=== PATIENT | female | born 1970 | race Caucasian/White ===

== ENCOUNTER 2017-10-16 14:30 | Emergency (ER) | payer BC ==
[~2017-10-16] VITALS: Ht 160 cm; Wt 82.0 kg
[2017-10-16 14:32] VITALS: BP 190/86; PULSE 81; RESP 18; TEMP 98.9; O2SAT 98
[2017-10-16 15:14] LABS: BILIRUBIN, URINE NEG (NEG); BLOOD, URINE SMALL (NEG); GLUCOSE,URINE NEG (NEG); KETONE, URINE NEG (NEG); NITRITE,URINE NEG (NEG); URINE LEUKOCYTE ESTERASE NEG (NEG)
[2017-10-16 15:23] LABS: AMORPHOUS SEDIMENT, URINE SMALL; URINE COLOR YELLOW (YELLW/STRAW)
[2017-10-16] MEDS ORDERED: SODIUM CHLORIDE 0.9% FLUSH 10 ML FLUSH IV FLUSH PRN (16:15)
[2017-10-16 16:36] LABS: AUTOMATED NEUTROPHIL # 7.4 TH/MM3 (1.8-7.7); BASOPHIL % 0.5 % (0.0-2.0); EOSINOPHIL # 0.1 TH/MM3 (0-0.4); EOSINOPHIL % 0.9 % (0.0-4.0); HEMATOCRIT 39.3 % (35.0-46.0); HEMOGLOBIN 13.1 GM/DL (11.6-15.3); LYMPH % 15.2 % (9.0-44.0); LYMPHOCYTE # 1.4 TH/MM3 (1.0-4.8); MEAN CELL VOLUME 77.8 FL (80.0-100.0); MEAN CORPUSCULAR HGB CONC 33.5 % (32.0-36.0); MEAN PLATELET VOLUME 8.3 FL (7.0-11.0); MONO % 6.6 % (0.0-8.0); MONOCYTE # 0.6 TH/MM3 (0-0.9); NEUT % 76.8 % (16.0-70.0); PLATELET COUNT 229 TH/MM3 (150-450); RED BLOOD COUNT 5.05 MIL/MM3 (4.00-5.30); WHITE BLOOD COUNT 9.5 TH/MM3 (4.0-11.0)
--- NOTE | 2017-10-16 16:37 | RADRPT ---
EXAM DATE/TIME: 10/16/2017 15:11 [facility] COMPARISON: No previous studies available for comparison. INDICATIONS : Right upper quadrant pain for four days after cholecystectomy. MEDICAL HISTORY : Smoker. SURGICAL HISTORY : Cholecystectomy. ENCOUNTER: Initial ACUITY: 4 - 6 days PAIN SCORE: 6/10 LOCATION: Right upper quadrant FINDINGS: No bowel obstruction, ileus or perforation is noted. The patient is status post cholecystectomy. CONCLUSION: No bowel obstruction, ileus or perforation. Nain Vargas MD on October 16, 2017 at 16:34 Board Certified Radiologist. This report was verified electronically.
--- NOTE | 2017-10-16 16:38 | RADRPT ---
EXAM DATE/TIME: 10/16/2017 15:11 [facility] COMPARISON: No previous studies available for comparison. INDICATIONS : Shortness of breath and fever for four days. MEDICAL HISTORY : Current smoker. SURGICAL HISTORY : Cholecystectomy. ENCOUNTER: Initial ACUITY: 4 - 6 days PAIN SCORE: 0/10 LOCATION: Bilateral chest FINDINGS: There is minimal streaky parenchymal opacity in the lung bases. No evidence of lobar consolidation or significant effusion. Cardiac contours are satisfactory. Thoracic skeleton is intact. CONCLUSION: Minimal streaky basilar parenchymal opacity. Sebastián Guardado MD on October 16, 2017 at 16:35 Board Certified Radiologist. This report was verified electronically.
[2017-10-16 16:40] VITALS: RESP 17; O2SAT 100
[2017-10-16 16:52] LABS: CHLORIDE 102 MEQ/L (98-107); SODIUM (NA) 135 MEQ/L (136-145)
[2017-10-16 16:55] LABS: CALCIUM 9.1 MG/DL (8.5-10.1)
[2017-10-16 16:56] LABS: ALBUMIN 3.7 GM/DL (3.4-5.0); BICARBONATE 28.3 MEQ/L (21.0-32.0); BLOOD UREA NITROGEN 6 MG/DL (7-18); GLUCOSE,RANDOM 104 MG/DL (74-106)
[2017-10-16 16:59] LABS: ALT (GPT) 72 U/L (10-53); AST (GOT) 22 U/L (15-37); CREATININE 0.65 MG/DL (0.50-1.00); GLOMERULAR FILTRATION RATE 97 ML/MIN (>89)
[2017-10-16 17:01] LABS: TOTAL PROTEIN 7.4 GM/DL (6.4-8.2)
[2017-10-16 17:02] LABS: ALKALINE PHOSPHATASE 107 U/L (45-117)
[2017-10-16] MEDS ORDERED: MIRA3350 PO (17:19)
[2017-10-16] MEDS ORDERED: FLEE10EN RECTAL (17:19)
--- NOTE | 2017-10-16 17:20 | PD ---
HPI Chief Complaint: Abdominal Pain Time Seen by Provider: 14:40 Travel History International Travel<30 days: No Contact w/Intl Traveler<30days: No Traveled to known affect area: No History of Present Illness HPI Patient is a 47-year-old female patient of Dr. Echevarria presents emergency department with right improper abdominal pain and fever to a T-max of 100.0 since last night. Patient is postoperative day 3 from a laparoscopic cholecystectomy. She states it hurts her whenever she is taking deep breaths, no nausea no vomiting, states she has not had a bowel movement since being discharged from the hospital. She has not been taking much of her prescribed opiate pain medication. Denies any cough congestion chest pain. States symptoms are moderate, context as above, associated sinus symptoms as above, gradually worsening PFSH Past Medical History High Cholesterol: Yes Tetanus Vaccination: > 5 Years Influenza Vaccination: No ?: Not LMP: 09/17/2017 Past Surgical History Cholecystectomy: Yes Tonsillectomy: Yes Other Surgery: Yes (fibroids removed) Social History Alcohol Use: Yes (socially) Tobacco Use: Yes (5 cigs daily) Substance Use: No Allergies-Medications (Allergen,Severity, Reaction): Coded Allergies: No Known Allergies (Verified Adverse Reaction, Unknown, 10/16/17) Reported Meds & Prescriptions Reported Meds & Active Scripts Active Fleet Bisacodyl Enema (Bisacodyl) 10 Mg/37 Ml Enem 37 Ml RECTAL DAILY PRN Miralax Powder (Polyethylene Glycol 3350 Powder) 17 Gm Powd 17 Gm PO BID 7 Days Mix and dissolve one measuring cap-ful (17 grams) in water or juice. Review of Systems Except as stated in HPI: all other systems reviewed are Neg Physical Exam Narrative GENERAL: Well-developed well-nourished in no obvious distress SKIN: Focused skin assessment warm/dry. HEAD: Atraumatic. Normocephalic. EYES: Pupils equal and round. No scleral icterus. No injection or drainage. ENT: No nasal bleeding or discharge. Mucous membranes pink and moist. NECK: Trachea midline. No JVD. CARDIOVASCULAR: Regular rate and rhythm. No murmur appreciated. RESPIRATORY: No accessory muscle use. Clear to auscultation. Breath sounds equal bilaterally. GASTROINTESTINAL: Abdomen soft, appropriately tender to palpation given her recent surgery, mostly tender in the right upper quadrant but no rebound or percussive tenderness. Abdomen is fairly benign given that she just had surgery. nondistended. Hepatic and splenic margins not palpable. MUSCULOSKELETAL: No obvious deformities. No clubbing. No cyanosis. No edema. There is no swelling of the calfs, Homans sign negative. NEUROLOGICAL: Awake and alert. No obvious cranial nerve deficits. Motor grossly within normal limits. Normal speech. PSYCHIATRIC: Appropriate mood and affect; insight and judgment normal. Data Data Last Documented VS Vital Signs Date Time Temp Pulse Resp B/P (MAP) Pulse Ox O2 Delivery O2 Flow Rate FiO2 10/16/17 17:23 73 18 131/75 (93) 97 10/16/17 16:40 Room Air 10/16/17 14:32 98.9 Orders Orders Chest, Pa & Lat (10/16/17 ) Abdomen, Kub Only (10/16/17 ) Urinalysis - C+S If Indicated (10/16/17 15:04) Complete Blood Count With Diff (10/16/17 16:14) Comprehensive Metabolic Panel (10/16/17 16:14) Lipase (10/16/17 16:14) Iv Access Insert/Monitor (10/16/17 16:14) Ecg Monitoring (10/16/17 16:14) Oximetry (10/16/17 16:14) Sodium Chloride 0.9% Flush (Ns Flush) (10/16/17 16:15) Ed Discharge Order (10/16/17 17:18) Labs Laboratory Tests Test 10/16/17 15:05 10/16/17 16:25 Urine Collection Type CLEAN CATCH Urine Color YELLOW Urine Turbidity CLEAR Urine pH 7.0 Urine Specific [place] 1.005 Urine Protein NEG mg/dL Urine Glucose (UA) NEG mg/dL Urine Ketones NEG mg/dL Urine Occult Blood SMALL Urine Nitrite NEG Urine Bilirubin NEG Urine Leukocyte Esterase NEG Urine Squamous Epithelial Cells 6-8 /hpf Urine Amorphous Sediment SMALL Microscopic Urinalysis Comment CULT NOT INDICATED White Blood Count 9.5 TH/MM3 Red Blood Count 5.05 MIL/MM3 Hemoglobin 13.1 GM/DL Hematocrit 39.3 % Mean Corpuscular Volume 77.8 FL Mean Corpuscular Hemoglobin 26.0 PG Mean Corpuscular Hemoglobin Concent 33.5 % Red Cell Distribution Width 13.0 % Platelet Count 229 TH/MM3 Mean Platelet Volume 8.3 FL Neutrophils (%) (Auto) 76.8 % Lymphocytes (%) (Auto) 15.2 % Monocytes (%) (Auto) 6.6 % Eosinophils (%) (Auto) 0.9 % Basophils (%) (Auto) 0.5 % Neutrophils # (Auto) 7.4 TH/MM3 Lymphocytes # (Auto) 1.4 TH/MM3 Monocytes # (Auto) 0.6 TH/MM3 Eosinophils # (Auto) 0.1 TH/MM3 Basophils # (Auto) 0.0 TH/MM3 CBC Comment DIFF FINAL Differential Comment Blood Urea Nitrogen 6 MG/DL Creatinine 0.65 MG/DL Random Glucose 104 MG/DL Total Protein 7.4 GM/DL Albumin 3.7 GM/DL Calcium Level 9.1 MG/DL Alkaline Phosphatase 107 U/L Aspartate Amino Transf (AST/SGOT) 22 U/L Alanine Aminotransferase (ALT/SGPT) 72 U/L Total Bilirubin 1.0 MG/DL Sodium Level 135 MEQ/L Potassium Level 3.8 MEQ/L Chloride Level 102 MEQ/L Carbon Dioxide Level 28.3 MEQ/L Anion Gap 5 MEQ/L Estimat Glomerular Filtration Rate 97 ML/MIN Lipase 56 U/L MDM Medical Decision Making Medical Screen Exam Complete: Yes Emergency Medical Condition: Yes Differential Diagnosis Postoperative fever, atelectasis, pneumonia, UTI, PE seems highly unlikely that she has been quite ambulatory at home according to her . Narrative Course Patient room to the emergency department, UA negative, chest x-ray negative. KUB does show significant amount of stool and she has been taking Dulcolax Gone ahead and add MiraLAX to her regimen. Patient was discussed with Dr. Herrera who does request basic labs and her basic labs are reassuring. I discussed with the patient that she does appear well and Dr. Herrera recommends that she continues to take her pain medication. At this time I do not think that a CT PE protocol is of necessity, I discussed that the patient has any further shortness of breath she should return emergency department but her shortness of breath symptoms right now she admits her because it hurts her when she takes a deep breath secondary to right upper quadrant pain. Diagnosis Primary Impression: Post-operative pain Additional Impression: Constipation Scripts Bisacodyl Enema (Fleet Bisacodyl Enema) 10 Mg/37 Ml Enem 37 ML RECTAL DAILY Y for CONSTIPATION, #1 BOTTLE 0 Refills Prov: Nain Peraza MD 10/16/17 Polyethylene Glycol 3350 Powder (Miralax Powder) 17 Gm Powd 17 GM PO BID for Constipation for 7 Days, #1 CAN 0 Refills Mix and dissolve one measuring cap-ful (17 grams) in water or juice. Prov: Nain Peraza MD 10/16/17 Disposition: 01 DISCHARGE HOME Condition: Stable Nain Peraza MD Oct 16, 2017 17:20
[2017-10-16 17:23] VITALS: BP 131/75
== END 2017-10-16 17:31 | disposition home or self-care (01) ==
LOC: PHED 14:30
DX: G89.18 Other acute postprocedural pain (principal); K59.00 Constipation, unspecified; E78.00 Pure hypercholesterolemia, unspecified; F17.210 Nicotine dependence, cigarettes, uncomplicated
CPT/HCPCS: 71046; 74018; 80053; 81001; 83690; 85025; 99284

== ENCOUNTER 2017-10-30 06:55 | Observation (INO) | payer BC ==
[~2017-10-30] VITALS: Ht 160 cm; Wt 75.0 kg
[~2017-10-30 06:55] MED LIST: FLEE10EN RECTAL; MIRA3350 PO
[2017-10-30 06:56] VITALS: BP 127/80; PULSE 102; RESP 14; TEMP 98; O2SAT 99
[2017-10-30] MEDS ORDERED: MORPHINE SULFATE 4 MG/ML INJ IV PUSH ONE (07:30)
[2017-10-30] MEDS ORDERED: DIATRIZOATE MEGLUM/DIATRIZOATE SOD 9 ML CUP PO ONE (07:30)
[2017-10-30] MEDS ORDERED: HYDR-3580 PO (07:43)
[2017-10-30] MEDS ORDERED: CYCL10TA PO (07:43)
[2017-10-30 07:57] LABS: BASOPHIL # 0.1 TH/MM3 (0-0.2); BASOPHIL % 0.6 % (0.0-2.0); EOSINOPHIL # 0.2 TH/MM3 (0-0.4); EOSINOPHIL % 1.4 % (0.0-4.0); HEMOGLOBIN 13.7 GM/DL (11.6-15.3); LYMPHOCYTE # 1.1 TH/MM3 (1.0-4.8); MEAN CELL VOLUME 78.4 FL (80.0-100.0); MEAN CORPUSCULAR HEMOGLOBIN 26.2 PG (27.0-34.0); MEAN CORPUSCULAR HGB CONC 33.5 % (32.0-36.0); MEAN PLATELET VOLUME 7.9 FL (7.0-11.0); MONO % 8.8 % (0.0-8.0); MONOCYTE # 1.1 TH/MM3 (0-0.9); NEUT % 80.2 % (16.0-70.0); PLATELET COUNT 424 TH/MM3 (150-450); RED BLOOD COUNT 5.23 MIL/MM3 (4.00-5.30); WHITE BLOOD COUNT 12.5 TH/MM3 (4.0-11.0)
[2017-10-30 08:06] LABS: ALT (GPT) 23 U/L (10-53); AST (GOT) 10 U/L (15-37); BICARBONATE 28.9 MEQ/L (21.0-32.0); BLOOD UREA NITROGEN 9 MG/DL (7-18); CALCIUM 9.5 MG/DL (8.5-10.1); CHLORIDE 102 MEQ/L (98-107); CREATININE 0.72 MG/DL (0.50-1.00); GLOMERULAR FILTRATION RATE 86 ML/MIN (>89); GLUCOSE,RANDOM 110 MG/DL (74-106); SODIUM (NA) 136 MEQ/L (136-145)
[2017-10-30 08:08] LABS: ALKALINE PHOSPHATASE 223 U/L (45-117); TOTAL BILIRUBIN ADULT 0.9 MG/DL (0.2-1.0); TOTAL PROTEIN 7.8 GM/DL (6.4-8.2)
--- NOTE | 2017-10-30 08:11 | RADRPT ---
EXAM DATE/TIME: 10/30/2017 07:32 [facility] COMPARISON: ABDOMEN KUB ONLY, October 16, 2017, 15:11. INDICATIONS : Lower chest pain post gallbladder removal. MEDICAL HISTORY : None. SURGICAL HISTORY : Cholecystectomy. ENCOUNTER: Initial ACUITY: 2 weeks PAIN SCORE: 10/10 LOCATION: Bilateral lower chest FINDINGS: A single view of the chest demonstrates the lungs to be symmetrically aerated without evidence of mas s, infiltrate or effusion. The cardiomediastinal contours are unremarkable. Osseous structures are intact. CONCLUSION: 1. No acute cardiopulmonary findings. Hermelindo Garcia MD on October 30, 2017 at 8:10 Board Certified Radiologist. This report was verified electronically.
[2017-10-30] MEDS ORDERED: IOHEXOL 350 MG/ML 10 ML VIAL (for RAD DIAG) IVCONTRAST ONE (09:56)
[2017-10-30] MEDS ORDERED: MORPHINE SULFATE 2 MG/ML INJ IV PUSH ONE (10:15)
--- NOTE | 2017-10-30 10:22 | RADRPT ---
EXAM DATE/TIME: 10/30/2017 09:40 [facility] COMPARISON: No previous studies available for comparison. INDICATIONS : Upper epigastric pain following cholecystectomy 10/23/17. IV CONTRAST: 98 cc Omnipaque 350 (iohexol) IV ; Cumulative dose for multiple exams. RADIATION DOSE: 18.17 CTDIvol (mGy) MEDICAL HISTORY : None SURGICAL HISTORY : Cholecystectomy. ENCOUNTER: Initial ACUITY: 1 day PAIN SCALE: 8/10 LOCATION: Bilateral upper quadrant TECHNIQUE: Volumetric scanning of the chest was performed using a pulmonary embolism protocol MIP images were re constructed. Using automated exposure control and adjustment of the mA and/or kV according to patien t size, radiation dose was kept as low as reasonably achievable to obtain optimal diagnostic quality images. DICOM format image data is available electronically for review and comparison. Follow-up recommendations for detected pulmonary nodules are based at a minimum on nodule size and pa tient risk factors according to Fleischner Society Guidelines. FINDINGS: PULMONARY ARTERIES: No filling defects are seen in the pulmonary arteries through the segmental level. LUNGS: There is no consolidation or pneumothorax . No concerning pulmonary nodule is visualized. PLEURAE: There is no pleural thickening or pleural effusion. MEDIASTINUM: There is good visualization of the great vessels of the middle mediastinum. No evidence of mediastin al or hilar adenopathy/mass. CONCLUSION: Negative for pulmonary embolism. Luis Feliz MD on October 30, 2017 at 10:11 Board Certified Radiologist. This report was verified electronically.
--- NOTE | 2017-10-30 10:24 | PD ---
HPI Chief Complaint: Abdominal Pain Time Seen by Provider: 08:12 Travel History International Travel<30 days: No Contact w/Intl Traveler<30days: No Traveled to known affect area: No History of Present Illness HPI 47-year-old female came to the emergency room with history of bilateral subcostal pain and generalized abdominal pain. She looked uncomfortable. She had a cholecystectomy 2 weeks ago and says she has been in this discomfort since then. She saw her surgeon one week ago which was Dr. Herrera. He had prescribed muscle relaxant which patient says did not help at all. Her pain radiates to her left shoulder occasionally. She looks in distress and started to cry when she said that she has been unable to sleep with this pain since its extremely uncomfortable. Vital signs were relatively stable. Pain comes and goes on its own. No aggravating or relieving factors identified. PFSH Past Medical History Narrative Medical List of her past medical, surgical, social and family history is reviewed from the nursing note. High Cholesterol: Yes ?: Not LMP: october 2017 Past Surgical History Cholecystectomy: Yes Tonsillectomy: Yes Other Surgery: Yes (fibroids removed) Social History Alcohol Use: Yes (socially) Tobacco Use: Yes (5 cigs daily) Substance Use: No Allergies-Medications (Allergen,Severity, Reaction): Coded Allergies: No Known Allergies (Verified Adverse Reaction, Unknown, 10/16/17) Comments No known drug allergies. Reported Meds & Prescriptions Reported Meds & Active Scripts Active Reported Flexeril (Cyclobenzaprine HCl) 10 Mg Tab 10 Mg PO TID Hydrocodone-Acetaminophen 7.5 Mg-325 Mg Tab 1 Tab PO Q4H PRN Narrative Medication List of her home medications reviewed from the nursing note. Review of Systems Except as stated in HPI: all other systems reviewed are Neg Gastrointestinal: Positive: Abdominal Pain Physical Exam Narrative GENERAL: Awake, alert, moderate distress, anxious, tearful SKIN: Focused skin assessment warm/dry. HEAD: Atraumatic. Normocephalic. EYES: Pupils equal and round. No scleral icterus. No injection or drainage. ENT: No nasal bleeding or discharge. Mucous membranes pink and moist. NECK: Trachea midline. No JVD. CARDIOVASCULAR: Regular rate and rhythm. No murmur appreciated. RESPIRATORY: No accessory muscle use. Clear to auscultation. Breath sounds equal bilaterally. GASTROINTESTINAL: Abdomen soft, distended, bowel sounds present, tenderness on moderate palpation. Hepatic and splenic margins not palpable. MUSCULOSKELETAL: No obvious deformities. No clubbing. No cyanosis. No edema. NEUROLOGICAL: Awake and alert. No obvious cranial nerve deficits. Motor grossly within normal limits. Normal speech. PSYCHIATRIC: Appropriate mood and affect; insight and judgment normal. Data Data Last Documented VS Orders Orders Complete Blood Count With Diff (10/30/17 07:23) Comprehensive Metabolic Panel (10/30/17 07:23) Creatine Kinase (Cpk) (10/30/17 07:23) Amylase (10/30/17 07:23) Lipase (10/30/17 07:23) Chest, Single Ap (10/30/17 07:23) Ct Abd/Pel W Iv Contrast(Rout) (10/30/17 07:23) Ed Urine Pregnancytest Poc (10/30/17 07:23) Diatrizoate Liq ( Gastroview Liq) (10/30/17 07:30) Morphine Inj (Morphine Inj) (10/30/17 07:30) Oral Contrast - Adult (10/30/17 08:14) Ct Pulmonary Angiogram (10/30/17 ) Iohexol 350 Inj (Omnipaque 350 Inj) (10/30/17 09:56) Morphine Inj (Morphine Inj) (10/30/17 10:15) Admit Order (Ed Use Only) (10/30/17 10:51) Labs Laboratory Tests Test 10/30/17 07:45 White Blood Count 12.5 TH/MM3 Red Blood Count 5.23 MIL/MM3 Hemoglobin 13.7 GM/DL Hematocrit 41.0 % Mean Corpuscular Volume 78.4 FL Mean Corpuscular Hemoglobin 26.2 PG Mean Corpuscular Hemoglobin Concent 33.5 % Red Cell Distribution Width 14.0 % Platelet Count 424 TH/MM3 Mean Platelet Volume 7.9 FL Neutrophils (%) (Auto) 80.2 % Lymphocytes (%) (Auto) 9.0 % Monocytes (%) (Auto) 8.8 % Eosinophils (%) (Auto) 1.4 % Basophils (%) (Auto) 0.6 % Neutrophils # (Auto) 10.0 TH/MM3 Lymphocytes # (Auto) 1.1 TH/MM3 Monocytes # (Auto) 1.1 TH/MM3 Eosinophils # (Auto) 0.2 TH/MM3 Basophils # (Auto) 0.1 TH/MM3 CBC Comment DIFF FINAL Differential Comment Blood Urea Nitrogen 9 MG/DL Creatinine 0.72 MG/DL Random Glucose 110 MG/DL Total Protein 7.8 GM/DL Albumin 4.0 GM/DL Calcium Level 9.5 MG/DL Alkaline Phosphatase 223 U/L Aspartate Amino Transf (AST/SGOT) 10 U/L Alanine Aminotransferase (ALT/SGPT) 23 U/L Total Bilirubin 0.9 MG/DL Sodium Level 136 MEQ/L Potassium Level 4.2 MEQ/L Chloride Level 102 MEQ/L Carbon Dioxide Level 28.9 MEQ/L Anion Gap 5 MEQ/L Estimat Glomerular Filtration Rate 86 ML/MIN Total Creatine Kinase 44 U/L Amylase Level 41 U/L Lipase 71 U/L [facility] Medical Decision Making Medical Screen Exam Complete: Yes Emergency Medical Condition: Yes Medical Record Reviewed: Yes Differential Diagnosis Small bowel obstruction, perforation, abdominal pain NOS, postsurgical pain, PE Narrative Course 10:23 AM blood test shows some leukocytosis. Rest of the blood test appears to be within acceptable limits. Awaiting for the CT scan of the abdomen and pelvis and pulmonary angiogram to be resulted. Patient has been medicated for pain. Dr. Herrera called earlier to let me know that as per him her pain is nonsurgical. He wants to be called back with the CAT scan report which I will once I have the report back. 10:[address] scan reports a back. Patient does not have a PE. The CAT scan shows a possible bile leak as per the radiologist. I put a call back for Dr. Herrera to discuss this with him. Patient might need to be admitted. Procedures EKG Prior to Arrival: No Physician Communication Physician Communication Dr. Herrera Diagnosis Primary Impression: Abdominal pain Qualified Codes: R10.84 - Generalized abdominal pain Additional Impressions: Status post cholecystectomy Bile leak, postoperative Admitting Information Admitting Physician Requests: Admit Scripts Levofloxacin (Levaquin) 500 Mg Tablet 500 MG PO DAILY for Infection for 5 Days, #5 TAB Prov: Mary Olivas/[employer] JOB 11/04/17 Sarai Swan MD Oct 30, 2017 10:24
--- NOTE | 2017-10-30 10:30 | RADRPT ---
EXAM DATE/TIME: 10/30/2017 09:40 [facility] COMPARISON: No previous studies available for comparison. INDICATIONS : Upper abdominal pain since cholecystectomy. IV CONTRAST: 98 cc Omnipaque 350 (iohexol) IV ; Cumulative dose for multiple exams. ORAL CONTRAST: Prescribed oral contrast ingested. RADIATION DOSE: 19.23 CTDIvol (mGy) MEDICAL HISTORY : Non-responsive. SURGICAL HISTORY : Cholecystectomy. ENCOUNTER: Initial ACUITY: 1 day PAIN SCALE: 8/10 LOCATION: epigastric region TECHNIQUE: Volumetric scanning of the abdomen and pelvis was performed. Using automated exposure control and ad justment of the mA and/or kV according to patient size, radiation dose was kept as low as reasonably achievable to obtain optimal diagnostic quality images. DICOM format image data is available electro nically for review and comparison. FINDINGS: LOWER LUNGS: The visualized lower lungs are clear. LIVER: The liver is normal size and has a homogeneous pattern of enhancement. There is a 7 mm round hypoden se lesion in the medial segment of the left lobe characteristic of a cyst. Cholecystectomy with hemo clips in the mirna. There is some fluid in the region of the mirna which appears to track along the inferior margin of the left lobe. There is also some minimal fluid lateral to the dome of the liver. SPLEEN: Normal size without lesion. PANCREAS: Within normal limits. KIDNEYS: Normal in size and shape. There is no mass, stone or hydronephrosis. ADRENAL GLANDS: Within normal limits. VASCULAR: There is no aortic aneurysm. BOWEL/MESENTERY: No dilated loops of small or large bowel. Oral contrast passes through to the distal small bowel. N o fluid tracks along the paracolic gutter. There is a moderate amount of free fluid in the dependent pelvis measuring up to 3 cm in thickness. No evidence of free air. ABDOMINAL WALL: Within normal limits. RETROPERITONEUM: There is no lymphadenopathy. BLADDER: No wall thickening or mass. REPRODUCTIVE: Within normal limits. INGUINAL: There is no lymphadenopathy or hernia. MUSCULOSKELETAL: Within normal limits for patient age. CONCLUSION: 1. Cholecystectomy with some fluid in the gallbladder fossa and tracking along the inferior margin of the liver. There is also some free fluid in the dependent pelvis. Location of the fluid along the inferior margin of the liver is unusual and raises the possibility of bile leak. 2. No dilated loops of small or large bowel. Luis Feliz MD on October 30, 2017 at 10:21 Board Certified Radiologist. This report was verified electronically.
[2017-10-30] MEDS ORDERED: SODIUM CHLORIDE 0.9% FLUSH 10 ML FLUSH IV FLUSH PRN (11:30)
[2017-10-30] MEDS ORDERED: ONDANSETRON HCL 4 MG/2 ML VIAL IV PUSH PRN (11:30)
--- NOTE | 2017-10-30 11:55 | HHI.HP ---
cc: Deny Herrera MD HPI Service General Surgery Primary Care Physician Valente Chandler MD Admission Diagnosis abdominal pain, status post cholecystectomy, fluid on CT abdomen/pelvis Chief Complaint: Genrealized weakness; continued RUQ abdominap pain History of Present Illness This is a 47 -year-old female who had a laparoscopic cholecystectomy on October [address] Herrera at the outpatient surgery center and was discharged home in stable condition. The patient continued to have generalized abdominal pain and malaise during her recovery. She came to the Emergency Department on October 16 to be evaluated. Her laboratory work was unremarkable and and XR of the abdomen was obtained which was also unremarkable. The patient had her follow up appointment with Dr. Herrera on October 21 where they discussed the abdominal discomfort. She was prescribed Flexeril and Concrete. She comes to the ED with complaints of continued abdominal discomfort. A CT abdomen pelvis was obtained which shows a fluid collection in the gallbladder fossa around to the inferior margin of the liver which is concerning for a biliary leak. She has a mildly elevated WBC. A General Surgery admission has been requested. Review of Systems Constitutional: COMPLAINS OF: Fatigue, Change in appetite, DENIES: Weight loss Endocrine: DENIES: Polyuria, Polyphagia Eyes: DENIES: Diplopia, Eye inflammation Ears, nose, mouth, throat: DENIES: Hearing loss, Vertigo Respiratory: DENIES: Apneas, Cough Cardiovascular: DENIES: Chest pain Gastrointestinal: COMPLAINS OF: Abdominal pain, Nausea, DENIES: Vomiting Genitourinary: DENIES: Urinary frequency Musculoskeletal: DENIES: Joint pain Integumentary: DENIES: Abnormal pigmentation Hematologic/lymphatic: DENIES: Bruising Immunologic/allergic: DENIES: Eczema Neurologic: DENIES: Abnormal gait, Headache Psychiatric: DENIES: Confusion, Mood changes, Depression Past Family Social History Past Medical History None Past Surgical History Laparoscopic cholecystectomy on Oct [address] Herrera Tonsillectomy as a child Reported Medications Post op Concrete and Flexeril Allergies: Coded Allergies: No Known Allergies (Verified Adverse Reaction, Unknown, 10/16/17) Active Ordered Medications Current Medications Medications (Trade) Dose Ordered Sig/Clemente Route Start Time Stop Time Status Last Admin Sodium Chloride 1,000 ml @ 125 mls/hr Q8H IV 10/30/17 12:00 (NS Flush) 2 ml BID IV FLUSH 10/30/17 21:00 (NS Flush) 2 ml UNSCH PRN IV FLUSH 10/30/17 11:30 (Protonix Inj) 40 mg DAILY IV PUSH 10/31/17 09:00 (Morphine Inj) 2 mg Q3H PRN IV PUSH 10/30/17 11:45 (Zofran Inj) 4 mg Q6HR PRN IV PUSH 10/30/17 11:30 Piperacillin Sod/ Tazobactam Sod 50 ml @ 100 mls/hr Q8H IV 10/30/17 12:00 Family History Non contributory Social History Denies ETOH use + Tobacco use--- 5 cigarettes daily Denies illicit drug use Lives at home with her . Physical Exam Vital Signs Vital Signs Date Time Temp Pulse Resp B/P (MAP) Pulse Ox O2 Delivery O2 Flow Rate FiO2 10/30/17 06:56 98.0 102 14 127/80 (96) 99 Physical Exam GENERAL: Very pleasant 47 year old female resting in bed in no acute distress. SKIN: Warm and dry. HEAD: Atraumatic. Normocephalic. EYES: Pupils equal and round. No scleral icterus. No injection or drainage. ENT: No nasal bleeding or discharge. Mucous membranes pink and moist. NECK: Trachea midline. CARDIOVASCULAR: Regular rate and rhythm. RESPIRATORY: No accessory muscle use. Clear to auscultation. Breath sounds equal bilaterally. GASTROINTESTINAL: Abdomen soft, nondistended. Laparoscopic incision sites healing well. RUQ tenderness with palpation that radiates to the epigastric region. MUSCULOSKELETAL: Extremities without clubbing, cyanosis, or edema. No obvious deformities. NEUROLOGICAL: Awake and alert. No obvious cranial nerve deficits. Motor grossly within normal limits. Five out of 5 muscle strength in the arms and legs. Normal speech. PSYCHIATRIC: Appropriate mood and affect; insight and judgment normal. Laboratory Laboratory Tests Test 10/30/17 07:45 White Blood Count 12.5 Red Blood Count 5.23 Hemoglobin 13.7 Hematocrit 41.0 Mean Corpuscular Volume 78.4 Mean Corpuscular Hemoglobin 26.2 Mean Corpuscular Hemoglobin Concent 33.5 Red Cell Distribution Width 14.0 Platelet Count 424 Mean Platelet Volume 7.9 Neutrophils (%) (Auto) 80.2 Lymphocytes (%) (Auto) 9.0 Monocytes (%) (Auto) 8.8 Eosinophils (%) (Auto) 1.4 Basophils (%) (Auto) 0.6 Neutrophils # (Auto) 10.0 Lymphocytes # (Auto) 1.1 Monocytes # (Auto) 1.1 Eosinophils # (Auto) 0.2 Basophils # (Auto) 0.1 CBC Comment DIFF FINAL Differential Comment Blood Urea Nitrogen 9 Creatinine 0.72 Random Glucose 110 Total Protein 7.8 Albumin 4.0 Calcium Level 9.5 Alkaline Phosphatase 223 Aspartate Amino Transf (AST/SGOT) 10 Alanine Aminotransferase (ALT/SGPT) 23 Total Bilirubin 0.9 Sodium Level 136 Potassium Level 4.2 Chloride Level 102 Carbon Dioxide Level 28.9 Anion Gap 5 Estimat Glomerular Filtration Rate 86 Total Creatine Kinase 44 Amylase Level 41 Lipase 71 Result Diagram: 10/30/1745 10/30/1745 Imaging Last 48 hours Impressions Chest X-Ray 10/30/17722 Signed Impressions: Service Date/Time: October 07:32 - CONCLUSION: 1. No acute cardiopulmonary findings. Hermelindo Garcia MD Abdomen/Pelvis CT 10/30/17722 Signed Impressions: Service Date/Time: October 09:40 - CONCLUSION: 1. Cholecystectomy with some fluid in the gallbladder fossa and tracking along the inferior margin of the liver. There is also some free fluid in the dependent pelvis. Location of the fluid along the inferior margin of the liver is unusual and raises the possibility of bile leak. 2. No dilated loops of small or large bowel. Luis Feliz MD CT Angiography 10/30/17 0000 Signed Impressions: Service Date/Time: October 09:40 - CONCLUSION: Negative for pulmonary embolism. Luis Feliz MD Caprini VTE Risk Assessment Caprini VTE Risk Assessment: No/Low Risk (score <= 1) VTE Pharm Contraindication: drain placement today Caprini Risk Assessment Model Point Value = 1 Point Value = 2 Point Value = 3 Point Value = 5 Age 41-60 Minor surgery BMI > 25 kg/m2 Swollen legs Varicose veins or History of unexplained or recurrent spontaneous Oral contraceptives or hormone replacement Sepsis (< 1 month) Serious lung disease, including pneumonia (< 1 month) Abnormal pulmonary function Acute myocardial infarction Congestive heart failure (< 1 month) History of inflammatory bowel disease Medical patient at bed rest Age 61-74 Arthroscopic surgery Major open surgery (> 45 min) Laparoscopic surgery (> 45 min) Malignancy Confined to bed (> 72 hours) Immobilizing plaster cast Central venous access Age >= 75 History of VTE Family history of VTE Factor V Leiden Prothrombin [id number] Lupus anticoagulant Anticardiolipin antibodies Elevated serum homocysteine Heparin-induced thrombocytopenia Other congenital or acquired thrombophilia Stroke (< 1 month) Elective arthroplasty Hip, pelvis, or leg fracture Acute spinal cord injury (< 1 month) Prophylaxis Regimen Total Risk Factor Score Risk Level Prophylaxis Regimen 0-1 Low Early ambulation 2 Moderate Order ONE of the following: *Sequential Compression Device (SCD) *Heparin 5000 units SQ BID 3-4 Higher Order ONE of the following medications: *Heparin 5000 units SQ TID *Enoxaparin/Lovenox 40 mg SQ daily (WT < 150 kg, CrCl > 30 mL/min) *Enoxaparin/Lovenox 30 mg SQ daily (WT < 150 kg, CrCl > 10-29 mL/min) *Enoxaparin/Lovenox 30 mg SQ BID (WT < 150 kg, CrCl > 30 mL/min) AND/OR *Sequential Compression Device (SCD) 5 or more Highest Order ONE of the following medications: *Heparin 5000 units SQ TID (Preferred with Epidurals) *Enoxaparin/Lovenox 40 mg SQ daily (WT < 150 kg, CrCl > 30 mL/min) *Enoxaparin/Lovenox 30 mg SQ daily (WT < 150 kg, CrCl > 10-29 mL/min) *Enoxaparin/Lovenox 30 mg SQ BID (WT < 150 kg, CrCl > 30 mL/min) AND *Sequential Compression Device (SCD) Assessment and Plan Assessment and Plan 47 year old female s/p laparoscopic cholecystectomy on October 13; back with generalized abdominal pain; CT abdomen/pelvis shows fluid in gallbladder fossa and inferior margin of liver -Plan for IR drain placement today -NPO -IVF -Zosyn -Pain control -Zofran PRN -Monitor labs -Pending findings may need GI consult-- will evaluate later Attending Note - Dr. Herrera Discussed findings with patient and Drs. Napoleon German and Qaism Garcia; they will place drain today. Abdomen soft; incisions healed. Likely bile collection Will get GI to see patient if leak is substantial The exam, history, and the medical decision-making described in the above note were completed with the assistance of the mid-level provider. I reviewed and agree with the findings presented. I attest that I had a [id number] encounter with the patient on the same day, and personally performed and documented my assessment and findings in the medical record. Discussed Condition With Dr. Herrera Mrs. De Santiago + at bedside Mary Olivas/First Eloina LOVING Oct 30, 2017 11:55 Deny Herrera MD Oct 31, 2017 20:11
[2017-10-30] MEDS: PIPERACIL-TAZO 3.375 GM PREMIX 50 ML IV SCH ×2 (13:32→22:46)
[2017-10-30] MEDS: SODIUM CHLOR 0.9% 1000 ML INJ 1,000 ML IV SCH ×2 (13:32→22:47)
[2017-10-30] MEDS: MORPHINE SULFATE 2 MG/ML INJ IV PUSH PRN (13:34)
[2017-10-30 16:00] VITALS: BP 190/87; PULSE 89; RESP 20; TEMP 98.6; O2SAT 98
[2017-10-30] MEDS ORDERED: LIDOCAINE HCL 1% 20 ML VIAL ONE (16:33)
[2017-10-30] MEDS ORDERED: LORazepam 2 MG/ML VIAL ONE (16:37)
[2017-10-30] MEDS ORDERED: fentaNYL CITRATE 250 MCG/5 ML AMP ONE (16:37)
[2017-10-30] MEDS ORDERED: MIDAZOLAM HCL 2 MG/2 ML VIAL ONE (17:12)
--- NOTE | 2017-10-30 17:25 | PD.RAD ---
Post Procedure Progress Note Pre Procedure Diagnosis: (1) Bile leak, postoperative Post Procedure Diagnosis: (1) Bile leak, postoperative Procedure Date: Oct 30, 2017 Supervising Radiologist: Hermelindo Garcia Estimated blood loss: none Anesthesia: Local, Conscious Sedation Plan of Activity Patient to Unit: ROPU Patient Condition: Good Additional Comments: 8french drain placed into the abdominal fluid collection. Drain in good position 20cc of bile removed. No residual collection seen on post op CT. Full dictated report to follow See PACS Report for procedural detail/treatment Hermelindo Garcia MD Oct 30, 2017 17:25
[2017-10-30 20:00] VITALS: BP 96/60; PULSE 95; RESP 16; TEMP 97.1; O2SAT 96
[2017-10-30] MEDS: SODIUM CHLORIDE 0.9% FLUSH 10 ML FLUSH IV FLUSH SCH (22:48)
[2017-10-31] VITALS: BP 106/59; PULSE 93; RESP 16; TEMP 96.9; O2SAT 94
[2017-10-31] MEDS: SODIUM CHLOR 0.9% 1000 ML INJ 1,000 ML IV SCH ×2 (04:00→11:23)
[2017-10-31] MEDS: PIPERACIL-TAZO 3.375 GM PREMIX 50 ML IV SCH ×3 (05:31→20:34)
[2017-10-31 08:00] VITALS: BP 137/76; PULSE 99; RESP 18; TEMP 99.5; O2SAT 93
--- NOTE | 2017-10-31 08:14 | RADRPT ---
EXAM DATE/TIME: 10/30/2017 16:59 [facility] COMPARISON: CT PULMONARY ANGIOGRAM, October 30, 2017, 9:40. INDICATIONS : Upper abdominal fluid SEDATION TIME: 30 minutes MEDICATION(S): 1.) 2 mg midazolam (Versed) IV 2.) 250 mcg fentanyl (Sublimaze) IV DEVICE(S): 1.) 8 Fr [place] FLUID: Total volume of 30 cc of bile was removed. Fluid was discarded. MEDICAL HISTORY : None. SURGICAL HISTORY : Cholecystectomy. ENCOUNTER: Initial ACUITY: 1 day PAIN SCORE: 8/10 LOCATION: Abdomen PROCEDURE: 1.) Conscious sedation with continuous EKG and oximetry monitoring. PROCEDURE : 1. CT guided drainage of the upper abdominal fluid collection. 2. Conscious sedation with continuous EKG and oximetry monitoring. The risks, benefits and alternatives to the procedure were explained and verbal and written consent w as obtained. Using automated exposure control and adjustment of the mA and/or kV according to patient size, radiation dose was kept as low as reasonably achievable to obtain optimal diagnostic quality i mages. The site was prepped in sterile fashion. Full sterile technique was used, including cap, ma sk, sterile gloves and gown and a large sterile sheet. Hand hygiene and 2% chlorhexidine and/or beta dine/alcohol prep was utilized per protocol for cutaneous antisepsis. The skin and subcutaneous tiss ues were infiltrated with local anesthetic solution. DICOM format image data is available electronic ally for review and comparison. Using CT guidance the collection in the upper abdomen was easily identified. The skin above the was a nesthetized with 10 cc 1% lidocaine. A Martínez blunt needle was advanced down into the collection wit hout difficulty. There was immediate return of bilious fluid. A 0.035 wire was advanced through the n eedle. A 8 Slovenian drain was advanced over the wire position within the collection without difficulty. Approximately 30 cc of bile was removed. Followup imaging was performed. This demonstrated complete resolution of the fluid collection. The patient tolerated the procedure well and there were no complications. Conscious sedation was per formed with the prescribed dosages and duration as above in the presence of an independent trained ra diology nurse to assist in the monitoring of the patient. EKG and oximetry remained stable throughou t the procedure. The patient tolerated the procedure well and there were no complications. The patient was sent to pos t anesthesia recovery in stable condition. CONCLUSION: Uncomplicated CT guided drainage. An 8 Slovenian drainage catheter was left in place. Hermelindo Garcia MD on October 31, 2017 at 8:10 Board Certified Radiologist. This report was verified electronically.
[2017-10-31] MEDS: PANTOPRAZOLE SODIUM 40 MG VIAL IV PUSH SCH (08:33)
[2017-10-31] MEDS: SODIUM CHLORIDE 0.9% FLUSH 10 ML FLUSH IV FLUSH SCH ×2 (08:33→20:34)
--- NOTE | 2017-10-31 09:21 | PD.CONS ---
HPI History of Present Illness This is a 47 year old who presented to the ER two days ago with complaints of abdominal pain, fever, chills. Pt had recent cholecystectomy on Oct [address] Herrera, reportedly having abdominal pain since procedure. CT abdomen and pelvis W IV contrast (10/30) --> Cholecystectomy with some fluid in the gallbladder fossa and tracking along the inferior margin of the liver. There is also some free fluid in the dependent pelvis. Location of the fluid along the inferior margin of the liver is unusual and raises the possibility of bile like. Pt S/P biliary accordion drain placed by IR last night with a total of 460 mL now drained. Pt reports significant relief in pain and swelling. Leukocytosis noted, she is currently on Zosyn. (Laverne Nazario) [facility] Past Medical History Denies Past Surgical History Laparoscopic cholecystectomy Tonsillectomy (Laverne Nazario) Coded Allergies: No Known Allergies (Verified Adverse Reaction, Unknown, 10/16/17) Social History Denies ETOH 5 cigarettes a day (Laverne Nazario) Review of Systems Constitutional: COMPLAINS OF: Fatigue, Change in appetite Gastrointestinal: COMPLAINS OF: Abdominal pain, Nausea, DENIES: Vomiting ( Laverne Nazario) GI Exam Vitals I&O Vital Signs Date Time Temp Pulse Resp B/P (MAP) Pulse Ox O2 Delivery O2 Flow Rate FiO2 10/31/17 08:00 99.5 99 18 137/76 (96) 93 10/31/17 00:00 96.9 93 16 106/59 (75) 94 10/30/17 20:00 97.1 95 16 96/60 (72) 96 10/30/17 16:00 98.6 89 20 190/87 (121) 98 I/O 10/30/17 10/30/17 10/30/17 10/31/17 10/31/17 10/31/17 07:00 15:00 23:00 07:00 15:00 23:00 Intake Total 50 ml 500 ml Output Total 400 ml 60 ml Balance 50 ml 100 ml -60 ml Intake Oral 450 ml IV Total 50 ml 50 ml Output Drainage Total 400 ml 60 ml # Voids 2 # Bowel Movements 0 Imaging Last Impressions Abscess Drainage CT 10/30/17 1403 Signed Impressions: Service Date/Time: October 16:59 - CONCLUSION: Uncomplicated CT guided drainage. An 8 Greek drainage catheter was left in place. Hermelindo Garcia MD Chest X-Ray 10/30/17722 Signed Impressions: Service Date/Time: October 07:32 - CONCLUSION: 1. No acute cardiopulmonary findings. Hermelindo Garcia MD Abdomen/Pelvis CT 10/30/17722 Signed Impressions: Service Date/Time: October 09:40 - CONCLUSION: 1. Cholecystectomy with some fluid in the gallbladder fossa and tracking along the inferior margin of the liver. There is also some free fluid in the dependent pelvis. Location of the fluid along the inferior margin of the liver is unusual and raises the possibility of bile leak. 2. No dilated loops of small or large bowel. Luis Feliz MD CT Angiography 10/30/17 0000 Signed Impressions: Service Date/Time: October 09:40 - CONCLUSION: Negative for pulmonary embolism. Luis Feliz MD Physical Examination HEENT: Normocephalic; atraumatic CHEST: Even/unlabored CARDIAC: RRR ABDOMEN: Mildly distended, tender, accordion drain to upper mid abdomen, bowel sounds active EXTREMITIES: No clubbing, cyanosis, or edema. SKIN: Normal; no rash; no jaundice. TARIFF COUNSEL: No focal deficits; alert and oriented times three. (Laverne Nazario) Assessment and Plan Plan Assessment: - Bile leak S/P laparoscopic cholecystectomy on Oct 13- pt complaining of abdominal pain and distention. Was also having fever and chills at home. CT abdomen and pelvis (10/30) --> Cholecystectomy with some fluid in the gallbladder fossa and tracking along the inferior margin of the liver. There is also some free fluid in the dependent pelvis. Location of the fluid along the inferior margin of the liver is unusual and raises the possibility of bile like. Pt S/P biliary accordion drain placed by IR last night with a total of 460 mL now drained. - Leukocytosis- on Zosyn Plan - EGD with ERCP with stent placement today - Obtain consent - Keep pt NPO - Zosyn - Further recommendations based on clinical course Pt has been seen and examined by myself and Dr. Antonio and this note is written on his behalf (Laverne Nazario) Physician Comments Seen and examined with FABIENNE, suspected bile leak. ERCP/Stent planned for today. Continue antibiotics. Dr. Hinds to follow over the weekend. Discussed with Dr. Herrera. Thank you (Shabnam Antonio MD) Laverne Nazario Oct 31, 2017 09:21 Shabnam Antonio MD Oct 31, 2017 19:28
[2017-10-31] MEDS ORDERED: CHLORHEXIDINE GLUCONATE 2 % 1 PACK (2 CLOTHS) TOPICAL PRN (11:45)
[2017-10-31] MEDS ORDERED: METOPROLOL TARTRATE 25 MG TAB PO PRN (11:45)
[2017-10-31] MEDS ORDERED: LACTATED RINGER'S 1000 ML IV PRN (11:45)
[2017-10-31] MEDS ORDERED: POVIDONE IODINE 5% (ANTISEPSIS KIT) 4 APPLICATIONS EACH NARE PRN (11:45)
[2017-10-31] MEDS ORDERED: SODIUM CHLORID 0.9% 500 ML IV PRN (11:45)
[2017-10-31] MEDS ORDERED: LIDOCAINE HCL 1% PF 5 ML SYRINGE OTHER ONE (12:00)
[2017-10-31] MEDS ORDERED: PROPOFOL 200 MG/20 ML AMP IV ONE (12:00)
[2017-10-31] MEDS ORDERED: ACETAMINOPHEN 1000 MG/100 ML 100 ML IV PRN (12:00)
[2017-10-31] MEDS ORDERED: GLUCAGON 1 MG/ML VIAL IV PUSH ONE (14:01)
--- NOTE | 2017-10-31 14:33 | GIPROC ---
[facility] [address] [facility]. [facility], [address] ERCP PROCEDURE REPORT EXAM DATE: 10/31/2017 PATIENT NAME: Camille Presley MR #: [id number] BIRTHDATE: 1970 ATTENDING: Shabnam Antonio MD ORDER #: [id number] TELEPHONE CLERK: Ariana Giordano RN STATUS: inpatient INDICATIONS: The patient is a 47 yr old female here for an ERCP due to abdominal pain of suspected biliary origin, established bile leak, and therapy of bile leak PROCEDURE PERFORMED: ERCP with stent placement MEDICATIONS: None and Per Anesthesia. CONSENT: The patient understands the risks and benefits of the procedure and understands that these risks include, but are not limited to: sedation, allergic reaction, infection, perforation and/or bleeding. Alternative means of evaluation and treatment include, among others: physical exam, x-rays, and/or surgical intervention. The patient elects to proceed with this endoscopic procedure. medical equipment was checked for proper function. Hand hygiene and appropriate measures for infection prevention was taken. After the risks, benefits and alternatives of the procedure were thoroughly explained, Informed was verified, confirmed and timeout was successfully executed by the treatment team. With the patient in left semi-prone position, medications were administered intravenously.The Pentax [id number] was passed from the mouth into the esophagus and further advanced from the esophagus into the stomach. From stomach scope was directed to the second portion of the duodenum. Major papilla was aligned with the duodenoscope. The scope position was confirmed fluoroscopically. Rest of the findings/therapeutics are given below. The scope was then completely withdrawn from the patient and the procedure completed. The pulse, BP, and O2 saturation were monitored and documented by the physician and the nursing staff throughout the entire procedure. The patient was cared for as planned according to standard protocol. The patient was then discharged to recovery in stable condition and with appropriate post procedure care. The ampulla was located the second portion of the duodenum, in a position more proximal than normal. There was extravastion of contrast seen from the cystic duct remnant. The biliary tree appeared normal with no evidence of stones or filling defects. 10 FR X 9 CM, into the cbd bridging the cystic duct remanent. ADVERSE EVENT: There were no complications. IMPRESSIONS: Bile leak, stent placed RECOMMENDATIONS: 1. Antibiotics 2. Liver enzymes REPEAT EXAM: Return 2 months ERCP Shabnam Antonio MD eSigned: Shabnam Antonio MD 10/31/2017 2:32 PM cc: Deny Herrera M.D.
[2017-10-31] MEDS ORDERED: IOHEXOL 350 MG/ML 50 ML BTL (for RAD DIAG) OTHER ONE (15:00)
--- NOTE | 2017-10-31 15:13 | RADRPT ---
EXAM DATE/TIME: 10/31/2017 14:01 [facility] COMPARISON: No previous studies available for comparison. INDICATIONS : Obstruction. Biliary stent placement. FLUORO TIME: 3.1 minutes IMAGE COUNT: 3 CONTRAST: Instilled by Ordering Physician MEDICAL HISTORY : None. SURGICAL HISTORY : Cholecystectomy. ENCOUNTER: Subsequent ACUITY: 2 days PAIN SCORE: Non-responsive. LOCATION: Right upper quadrant FINDINGS: An ERCP was performed by the ordering physician. The images demonstrate a a nondilated intra-axial hepatic biliary tree on the initial images. On the final image, a biliary stent is seen in good position. CONCLUSION: ERCP as above. Sebastián Guardado MD on October 31, 2017 at 15:11 Board Certified Radiologist. This report was verified electronically.
--- NOTE | 2017-10-31 15:23 | HHI.PR ---
cc: Deny Herrera MD Subjective Subjective Notes Up to chair Feeling a little better today Objective Vitals/I&O Vital Signs Date Time Temp Pulse Resp B/P (MAP) Pulse Ox O2 Delivery O2 Flow Rate FiO2 10/31/17 08:00 99.5 99 18 137/76 (96) 93 Radiology Last 48 hours Impressions Chest X-Ray 10/30/17722 Signed Impressions: Service Date/Time: October 07:32 - CONCLUSION: 1. No acute cardiopulmonary findings. Hermelindo Garcia MD Abdomen/Pelvis CT 10/30/17722 Signed Impressions: Service Date/Time: October 09:40 - CONCLUSION: 1. Cholecystectomy with some fluid in the gallbladder fossa and tracking along the inferior margin of the liver. There is also some free fluid in the dependent pelvis. Location of the fluid along the inferior margin of the liver is unusual and raises the possibility of bile leak. 2. No dilated loops of small or large bowel. Luis Feliz MD CT Angiography 10/30/17 0000 Signed Impressions: Service Date/Time: October 09:40 - CONCLUSION: Negative for pulmonary embolism. Luis Feliz MD Cardiovascular: Regular Lungs: Clear Abdomen: Other (IR placed drain in; abdomen mildly tender to palpation ) Extremities: No edema A/P Assessment and Plan 47 year old female s/p laparoscopic cholecystectomy on October 13; back with generalized abdominal pain; CT abdomen/pelvis shows fluid in gallbladder fossa and inferior margin of liver -s/p IR placed drain; bile -GI consult for ERCP and stent placement -NPO for procedure -IVF -Zosyn Attending Note - Dr. Javier Antonio placed stent due to cystic duct stump leak Will monitor drain output and continue antibiotics for next day or so. Likely discharge Friday or Friday with [facility] for drain care. The exam, history, and the medical decision-making described in the above note were completed with the assistance of the mid-level provider. I reviewed and agree with the findings presented. I attest that I had a [id number] encounter with the patient on the same day, and personally performed and documented my assessment and findings in the medical record. Mary Olivas/First Eloina LOVING Oct 31, 2017 15:23 Deny Herrera MD Oct 31, 2017 20:13
[2017-10-31] MEDS: MORPHINE SULFATE 2 MG/ML INJ IV PUSH PRN (15:24)
[2017-10-31 16:00] VITALS: BP 172/89; PULSE 85; RESP 18; TEMP 97.3; O2SAT 96
[2017-10-31] MEDS ORDERED: ACETAMINOPHEN/HYDROcodone 325 MG/5 MG TAB PO PRN (16:30)
--- NOTE | 2017-10-31 16:33 | EKG ---
Date Performed: 10/31/2017 Time Performed: 12:30:46 PTAGE: 47 years EKG: Sinus rhythm WITH SHORT LA INTERVAL BORDERLINE ECG NO PREVIOUS TRACING DOCTOR: Gerber Carreon Interpretating Date/Time 10/31/2017 16:30:57
--- NOTE | 2017-10-31 17:39 | HHI.FF ---
Face to Face Verification Diagnosis: (1) Bile leak, postoperative Home Health Nursing Order: Wound care and dressing changes Instructions: Drain care I have seen patient Camille Presley on 10/31/17. My clinical findings support the need for the requested home health care services because: Limited ability to care for self High risk of falls I certify that my clinical findings support that this patient is homebound because: Post-op weakness Mary Olivas/Application Support ARNP Oct 31, 2017 17:39
[2017-10-31] MEDS ORDERED: ACETAMINOPHEN 325 MG TAB PO PRN (18:15)
[2017-10-31 20:00] VITALS: BP 147/79; PULSE 93; RESP 16; TEMP 98.6; O2SAT 92
[2017-11-01] VITALS: BP 141/89; PULSE 85; RESP 16; TEMP 98.6; O2SAT 91
[2017-11-01] MEDS: ACETAMINOPHEN/HYDROcodone 325 MG/5 MG TAB PO PRN ×2 (00:25→20:33)
[2017-11-01] MEDS: SODIUM CHLOR 0.9% 1000 ML INJ 1,000 ML IV SCH ×4 (00:27→18:15)
[2017-11-01] MEDS: PIPERACIL-TAZO 3.375 GM PREMIX 50 ML IV SCH ×3 (03:54→20:34)
[2017-11-01 08:00] VITALS: BP 163/80; PULSE 93; RESP 20; TEMP 98; O2SAT 94
[2017-11-01] MEDS: PANTOPRAZOLE SODIUM 40 MG VIAL IV PUSH SCH (08:51)
[2017-11-01] MEDS: SODIUM CHLORIDE 0.9% FLUSH 10 ML FLUSH IV FLUSH SCH ×2 (09:10→20:34)
--- NOTE | 2017-11-01 10:46 | HHI.PR ---
Subjective Subjective Notes Patient just does not feel well overall. She is hungry and has been unable to eat. She is tired and has not been able to sleep well. She has discomfort kind of all over her abdomen but not real severe. She has noted the character of the drainage has changed from a dark bilious to much caser up and has decreased in amount. Objective Vitals/I&O Vital Signs Date Time Temp Pulse Resp B/P (MAP) Pulse Ox O2 Delivery O2 Flow Rate FiO2 11/01/17 08:00 98.0 93 20 163/80 (107) 94 Radiology Last 48 hours Impressions Chest X-Ray 10/30/17722 Signed Impressions: Service Date/Time: October 07:32 - CONCLUSION: 1. No acute cardiopulmonary findings. Hermelindo Garcia MD Abdomen/Pelvis CT 10/30/17722 Signed Impressions: Service Date/Time: October 09:40 - CONCLUSION: 1. Cholecystectomy with some fluid in the gallbladder fossa and tracking along the inferior margin of the liver. There is also some free fluid in the dependent pelvis. Location of the fluid along the inferior margin of the liver is unusual and raises the possibility of bile leak. 2. No dilated loops of small or large bowel. Luis Feliz MD CT Angiography 10/30/17 0000 Signed Impressions: Service Date/Time: October 09:40 - CONCLUSION: Negative for pulmonary embolism. Luis Feliz MD Abdomen: Other (Abdomen is soft and nondistended. She has normal bowel sounds. There is mild diffuse tenderness without rebound or guarding. The drain exits in the epigastric area. The character of the drainage is yellow and clear. There is very little bilious tinge to the drainage at this time.) Extremities: No edema A/P Assessment and Plan Postop cystic duct leak following laparoscopic cholecystectomy treated with percutaneous drainage and endoscopic placement of a common bile duct stent traversing the cystic duct leak. The character of the percutaneous drainage is no longer dark bilious. I have ordered a regular diet for the patient. Is okay for her to shower. I believe in the next 24-48 hours she could transition to oral antibiotics and be discharged from the hospital possibly having her drain removed prior to discharge. Anton Johnson MD Nov 01, 2017 10:46
[2017-11-01 11:08] LABS: AUTOMATED NEUTROPHIL # 7.9 TH/MM3 (1.8-7.7); BASOPHIL % 0.3 % (0.0-2.0); EOSINOPHIL # 0.2 TH/MM3 (0-0.4); EOSINOPHIL % 1.8 % (0.0-4.0); HEMATOCRIT 31.5 % (35.0-46.0); HEMOGLOBIN 10.9 GM/DL (11.6-15.3); LYMPH % 10.9 % (9.0-44.0); LYMPHOCYTE # 1.1 TH/MM3 (1.0-4.8); MEAN CELL VOLUME 77.5 FL (80.0-100.0); MEAN CORPUSCULAR HEMOGLOBIN 26.8 PG (27.0-34.0); MEAN CORPUSCULAR HGB CONC 34.6 % (32.0-36.0); MEAN PLATELET VOLUME 8.7 FL (7.0-11.0); MONO % 7.5 % (0.0-8.0); MONOCYTE # 0.7 TH/MM3 (0-0.9); NEUT % 79.5 % (16.0-70.0); PLATELET COUNT 277 TH/MM3 (150-450); RED BLOOD COUNT 4.06 MIL/MM3 (4.00-5.30); RED CELL DISTRIBUTION WIDTH 13.7 % (11.6-17.2); WHITE BLOOD COUNT 9.9 TH/MM3 (4.0-11.0)
[2017-11-01 12:00] VITALS: BP 148/76; PULSE 86; RESP 20; TEMP 99.3; O2SAT 94
[2017-11-01 16:00] VITALS: BP 147/70; PULSE 98; RESP 20; TEMP 98.6; O2SAT 96
--- NOTE | 2017-11-01 16:08 | HHI.GIFU ---
Subjective Remarks Resting in the bed awake, answering questions appropriately Abdominal tenderness generalized Biliary drain mid abdomen intact draining clear yellow bilious fluid Appetite mild improved, still not eating very much (Sheri Bacon) Objective Vitals I&O Vital Signs Date Time Temp Pulse Resp B/P (MAP) Pulse Ox O2 Delivery O2 Flow Rate FiO2 11/01/17 12:00 99.3 86 20 148/76 (100) 94 11/01/17 08:00 98.0 93 20 163/80 (107) 94 11/01/17 00:00 98.6 85 16 141/89 (106) 91 10/31/17 20:00 98.6 93 16 147/79 (101) 92 I/O 10/31/17 10/31/17 10/31/17 11/01/17 11/01/17 11/01/17 07:00 15:00 23:00 07:00 15:00 23:00 Intake Total 500 ml 750 ml 770 ml 1480 ml Output Total 400 ml 60 ml 75 ml 20 ml Balance 100 ml 690 ml 695 ml 1460 ml Intake Oral 450 ml 720 ml 480 ml IV Total 50 ml 50 ml 50 ml 1000 ml Other 700 ml Output Drainage Total 400 ml 60 ml 75 ml 20 ml # Voids 2 4 3 # Bowel Movements 0 0 2 Laboratory Laboratory Tests Test 11/01/17 09:08 White Blood Count 9.9 Red Blood Count 4.06 Hemoglobin 10.9 Hematocrit 31.5 Mean Corpuscular Volume 77.5 Mean Corpuscular Hemoglobin 26.8 Mean Corpuscular Hemoglobin Concent 34.6 Red Cell Distribution Width 13.7 Platelet Count 277 Mean Platelet Volume 8.7 Neutrophils (%) (Auto) 79.5 Lymphocytes (%) (Auto) 10.9 Monocytes (%) (Auto) 7.5 Eosinophils (%) (Auto) 1.8 Basophils (%) (Auto) 0.3 Neutrophils # (Auto) 7.9 Lymphocytes # (Auto) 1.1 Monocytes # (Auto) 0.7 Eosinophils # (Auto) 0.2 Basophils # (Auto) 0.0 CBC Comment DIFF FINAL Differential Comment Imaging Last Impressions GI Procedure 10/31/17 0000 Signed Impressions: Service Date/Time: Tuesday, October 31, 2017 14:01 - CONCLUSION: ERCP as above. Sebastián Guardado MD Abscess Drainage CT 10/30/17 7801 Signed Impressions: Service Date/Time: October 16:59 - CONCLUSION: Uncomplicated CT guided drainage. An 8 Finnish drainage catheter was left in place. Hermelindo Garcia MD Chest X-Ray 10/30/1723 Signed Impressions: Service Date/Time: October 07:32 - CONCLUSION: 1. No acute cardiopulmonary findings. Hermelindo Garcia MD Abdomen/Pelvis CT 10/30/17722 Signed Impressions: Service Date/Time: October 09:40 - CONCLUSION: 1. Cholecystectomy with some fluid in the gallbladder fossa and tracking along the inferior margin of the liver. There is also some free fluid in the dependent pelvis. Location of the fluid along the inferior margin of the liver is unusual and raises the possibility of bile leak. 2. No dilated loops of small or large bowel. Luis Feliz MD CT Angiography 10/30/17 0000 Signed Impressions: Service Date/Time: October 09:40 - CONCLUSION: Negative for pulmonary embolism. Luis Feliz MD Physical Exam HEENT: Pupils round and reactive to light; normocephalic; atraumatic; no jaundice. Oral cavity clear NECK: Neck is supple, no JVD, no lymphadenopathy. CHEST: Chest is clear to auscultation and percussion. CARDIAC: Regular rate and rhythm with no murmur gallop or rubs. ABDOMEN: Round, Soft, nondistended, mid and general abdominal tenderness; no hepatosplenomegaly; bowel sounds are present in all four quadrants., Drainage tube mid abdomen draining yellow bilious fluid EXTREMITIES: No clubbing, cyanosis, or edema. SKIN: Normal; no rash; no jaundice. DISTRIBUTION LEAD: No focal deficits; alert and oriented times three. (Sheri Bacon) Assessment and Plan Plan Assessment: History -On admission, Bile leak S/P laparoscopic cholecystectomy on Oct 13- pt complaining of abdominal pain and distention. Ostomy for chills and fever CT abdomen and pelvis (10/30) --> Cholecystectomy with some fluid in the gallbladder fossa and tracking along the inferior margin of the liver. There is also some free fluid in the dependent pelvis. Location of the fluid along the inferior margin of the liver is unusual and raises the possibility of bile leak. Appreciate general surgery input. Pt S/P biliary accordion drain placed by IR , draining clear bilious fluid -10/31/[address] Antonio, without any complications Plan - Diet regular as tolerated -Monitor drainage tube output color and consistency -Monitor for any acute bleeding or change in abdomen, nausea or vomiting acute - Further recommendations based on clinical course -PPI IV Pt has been seen and examined by myself and , note is written on his behalf (Sheri Bacon) Plan patient was seen and examined, agree with above note, drainage i much less, and pain improving, will need ercp in few wks (Derrick Hinds MD) Sheri Bacon Nov 01, 2017 16:08 Derrick Hinds MD Nov 01, 2017 19:08
[2017-11-01 20:00] VITALS: BP 144/87; PULSE 82; RESP 18; TEMP 99.5; O2SAT 95
[2017-11-02] VITALS: BP 138/78; PULSE 83; RESP 18; TEMP 98.8; O2SAT 92
[2017-11-02] MEDS: SODIUM CHLOR 0.9% 1000 ML INJ 1,000 ML IV SCH (02:45)
[2017-11-02] MEDS: PIPERACIL-TAZO 3.375 GM PREMIX 50 ML IV SCH (02:45)
[2017-11-02] MEDS: ACETAMINOPHEN/HYDROcodone 325 MG/5 MG TAB PO PRN ×2 (02:46→16:52)
[2017-11-02] MEDS: PANTOPRAZOLE SODIUM 40 MG VIAL IV PUSH SCH (07:56)
[2017-11-02] MEDS: SODIUM CHLORIDE 0.9% FLUSH 10 ML FLUSH IV FLUSH SCH ×2 (07:56→20:33)
[2017-11-02 08:00] VITALS: BP 141/79; PULSE 83; RESP 18; TEMP 98.7; O2SAT 93
--- NOTE | 2017-11-02 08:45 | HHI.PR ---
Subjective Subjective Notes feels better today, still some pain in upper abdomen. tolerating some po, pain controlled with meds. reports drain not draining much at all now Objective Vitals/I&O Vital Signs Date Time Temp Pulse Resp B/P (MAP) Pulse Ox O2 Delivery O2 Flow Rate FiO2 11/02/17 00:00 98.8 83 18 138/78 (98) 92 Labs Laboratory Tests Test 11/01/17 09:08 White Blood Count 9.9 Red Blood Count 4.06 Hemoglobin 10.9 Hematocrit 31.5 Mean Corpuscular Volume 77.5 Mean Corpuscular Hemoglobin 26.8 Mean Corpuscular Hemoglobin Concent 34.6 Red Cell Distribution Width 13.7 Platelet Count 277 Mean Platelet Volume 8.7 Neutrophils (%) (Auto) 79.5 Lymphocytes (%) (Auto) 10.9 Monocytes (%) (Auto) 7.5 Eosinophils (%) (Auto) 1.8 Basophils (%) (Auto) 0.3 Neutrophils # (Auto) 7.9 Lymphocytes # (Auto) 1.1 Monocytes # (Auto) 0.7 Eosinophils # (Auto) 0.2 Basophils # (Auto) 0.0 CBC Comment DIFF FINAL Differential Comment Radiology Last 48 hours Impressions Chest X-Ray 10/30/17722 Signed Impressions: Service Date/Time: October 07:32 - CONCLUSION: 1. No acute cardiopulmonary findings. Hermelindo Garcia MD Abdomen/Pelvis CT 10/30/17722 Signed Impressions: Service Date/Time: October 09:40 - CONCLUSION: 1. Cholecystectomy with some fluid in the gallbladder fossa and tracking along the inferior margin of the liver. There is also some free fluid in the dependent pelvis. Location of the fluid along the inferior margin of the liver is unusual and raises the possibility of bile leak. 2. No dilated loops of small or large bowel. Luis Feliz MD CT Angiography 10/30/17 0000 Signed Impressions: Service Date/Time: October 09:40 - CONCLUSION: Negative for pulmonary embolism. Luis Feliz MD Abdomen: Non-distended, Post-op tenderness, BS normal Narrative Exam drain with minimal clear yellow fluid. A/P Assessment and Plan bile leak s/p lap scott. s/p ercp with stent and drain placement will HL IVF and change to po abx likely DC drain tomorrow and DC home if doing well, needs to eat a little more FU with GI for stent removal in a few weeks. Valente Segura MD Nov 02, 2017 08:45
[2017-11-02] MEDS: LEVOFLOXACIN 500 MG TAB PO SCH (10:08)
[2017-11-02 12:00] VITALS: BP 139/81; PULSE 84; RESP 18; TEMP 98.7; O2SAT 96
--- NOTE | 2017-11-02 14:43 | HHI.GIFU ---
Subjective Remarks Resting in the bed Still has some mild abdominal pain or wound drainage site, otherwise gradual improvement noted No nausea vomiting diarrhea or constipation Will to tolerate small amounts of food. (Sheri Bacon) Objective Vitals I&O Vital Signs Date Time Temp Pulse Resp B/P (MAP) Pulse Ox O2 Delivery O2 Flow Rate FiO2 11/02/17 12:00 98.7 84 18 139/81 (100) 96 11/02/17 08:00 98.7 83 18 141/79 (99) 93 11/02/17 00:00 98.8 83 18 138/78 (98) 92 11/01/17 20:00 99.5 82 18 144/87 (106) 95 11/01/17 16:00 98.6 98 20 147/70 (95) 96 I/O 11/01/17 11/01/17 11/01/17 11/02/17 11/02/17 11/02/17 07:00 15:00 23:00 07:00 15:00 23:00 Intake Total 1480 ml 1050 ml 3100 ml 1050 ml Output Total 20 ml 20 ml 15 ml Balance 1460 ml 1050 ml 3080 ml 1035 ml Intake Oral 480 ml 2000 ml IV Total 1000 ml 1050 ml 1100 ml 1050 ml Output Drainage Total 20 ml 20 ml 15 ml # Voids 3 5 2 # Bowel Movements 2 0 Imaging Last Impressions GI Procedure 10/31/17 0000 Signed Impressions: Service Date/Time: Tuesday, October 31, 2017 14:01 - CONCLUSION: ERCP as above. Sebastián Guardado MD Abscess Drainage CT 10/30/17 1403 Signed Impressions: Service Date/Time: October 16:59 - CONCLUSION: Uncomplicated CT guided drainage. An 8 [place]bourg[place] drainage catheter was left in place. Hermelindo Garcia MD Chest X-Ray 10/30/17722 Signed Impressions: Service Date/Time: October 07:32 - CONCLUSION: 1. No acute cardiopulmonary findings. Hermelindo Garcia MD Abdomen/Pelvis CT 10/30/17722 Signed Impressions: Service Date/Time: October 09:40 - CONCLUSION: 1. Cholecystectomy with some fluid in the gallbladder fossa and tracking along the inferior margin of the liver. There is also some free fluid in the dependent pelvis. Location of the fluid along the inferior margin of the liver is unusual and raises the possibility of bile leak. 2. No dilated loops of small or large bowel. Luis Feliz MD CT Angiography 10/30/17 0000 Signed Impressions: Service Date/Time: October 09:40 - CONCLUSION: Negative for pulmonary embolism. Luis Feliz MD Physical Exam HEENT: Pupils round and reactive to light; normocephalic; atraumatic; no jaundice. Oral cavity clean NECK: Neck is supple, no JVD, no lymphadenopathy palpable CHEST: Chest is clear to auscultation and percussion. CARDIAC: Regular rate and rhythm with no murmur gallop or rubs. ABDOMEN: Round, Soft, nondistended, abdominal tenderness noted at site of drain otherwise improved; no hepatosplenomegaly; bowel sounds are present in all four quadrants., Drainage tube mid abdomen draining small amount yellow bilious fluid EXTREMITIES: No clubbing, cyanosis, or edema. SKIN: Normal; no rash; no jaundice. CATTYMAN: No focal deficits; alert and oriented times three. (Sheri Bacon) Assessment and Plan Plan Assessment: History -On admission, Bile leak S/P laparoscopic cholecystectomy on Oct 13- pt complaining of abdominal pain and distention. Ostomy for chills and fever CT abdomen and pelvis (10/30) --> Cholecystectomy with some fluid in the gallbladder fossa and tracking along the inferior margin of the liver. There is also some free fluid in the dependent pelvis. Location of the fluid along the inferior margin of the liver is unusual and raises the possibility of bile leak. Appreciate general surgery input. Pt S/P biliary accordion drain placed by IR , draining clear bilious fluid -10/31/[address] Antonio, without any complications Plan - Diet regular as tolerated -Monitor drainage tube output color and consistency, decreased amounts of drainage noted today -Monitor for any acute bleeding or change in abdomen, - Further recommendations based on clinical course -PPI IV -To patient possible DC tomorrow, will need to follow back up with GI for ERCP in a few weeks Pt has been seen and examined by myself and , note is written on his behalf (Sheri Bacon) Plan Patient was seen and examined, agree with above-noted, less drainage and less abdominal discomfort, most likely home tomorrow, she will need ERCP with stent removal in few month (Derrick Hinds MD) Sheri Bacon Nov 02, 2017 14:43 Derrick Hinds MD Nov 02, 2017 17:46
[2017-11-02 16:00] VITALS: BP 170/85; PULSE 89; RESP 20; TEMP 100.6; O2SAT 95
[2017-11-02 20:00] VITALS: BP 145/82; PULSE 74; RESP 16; TEMP 97.3; O2SAT 96
[2017-11-03] VITALS: BP 164/85; PULSE 94; RESP 18; TEMP 99.3; O2SAT 92
[2017-11-03] MEDS: ACETAMINOPHEN/HYDROcodone 325 MG/5 MG TAB PO PRN ×2 (02:02→22:14)
[2017-11-03 08:00] VITALS: BP 174/88; PULSE 83; RESP 18; TEMP 98.3; O2SAT 94
[2017-11-03] MEDS: SODIUM CHLORIDE 0.9% FLUSH 10 ML FLUSH IV FLUSH SCH ×2 (08:32→21:00)
[2017-11-03] MEDS: LEVOFLOXACIN 500 MG TAB PO SCH (08:32)
[2017-11-03] MEDS: PANTOPRAZOLE SODIUM 40 MG VIAL IV PUSH SCH (08:32)
[2017-11-03 08:40] VITALS: BP 152/80
[2017-11-03 12:00] VITALS: BP 132/76; PULSE 82; RESP 20; TEMP 98.7; O2SAT 97
[2017-11-03 16:00] VITALS: BP 139/84; PULSE 84; RESP 20; TEMP 98.9; O2SAT 95
--- NOTE | 2017-11-03 19:06 | HHI.PR ---
cc: Deny Herrera MD Subjective Subjective Notes Late Entry--- seen about 0800 Up to chair ; just ordered breakfast "I still feel blah today." Objective Vitals/I&O Vital Signs Date Time Temp Pulse Resp B/P (MAP) Pulse Ox O2 Delivery O2 Flow Rate FiO2 11/03/17 16:00 98.9 84 20 139/84 (102) 95 Radiology Last 48 hours Impressions Chest X-Ray 10/30/17722 Signed Impressions: Service Date/Time: October 07:32 - CONCLUSION: 1. No acute cardiopulmonary findings. Hermelindo Garcia MD Abdomen/Pelvis CT 10/30/17722 Signed Impressions: Service Date/Time: October 09:40 - CONCLUSION: 1. Cholecystectomy with some fluid in the gallbladder fossa and tracking along the inferior margin of the liver. There is also some free fluid in the dependent pelvis. Location of the fluid along the inferior margin of the liver is unusual and raises the possibility of bile leak. 2. No dilated loops of small or large bowel. Luis Feliz MD CT Angiography 10/30/17 0000 Signed Impressions: Service Date/Time: October 09:40 - CONCLUSION: Negative for pulmonary embolism. Luis Feliz MD Cardiovascular: Regular Lungs: Clear Abdomen: Other (IR placed drain --- tenderness around insertion site; clear yellow drainage ) Extremities: No edema A/P Assessment and Plan 47 year old female s/p laparoscopic cholecystectomy on October 13; back with generalized abdominal pain; CT abdomen/pelvis shows fluid in gallbladder fossa and inferior margin of liver -s/p IR placed drain; bile -s/p ERCP and stent placement -Regular diet -PO Levaquin -Tentative plan for DC tomorrow Attending Note - Dr. Herrera Had a fever last evening; still not feeling well Tolerating diet Abdomen benign 30 ml from drain last 24 hrs; need to leave in place The exam, history, and the medical decision-making described in the above note were completed with the assistance of the mid-level provider. I reviewed and agree with the findings presented. I attest that I had a [id number] encounter with the patient on the same day, and personally performed and documented my assessment and findings in the medical record. Mary Olivas/First Elo[facility] LOVING Nov 03, 2017 19:06 Deny Herrera MD Nov 04, 2017 11:50
[2017-11-03 20:00] VITALS: BP 146/88; PULSE 82; RESP 18; TEMP 98.5; O2SAT 98
[2017-11-04] VITALS: BP 132/77; PULSE 87; RESP 18; TEMP 96.9; O2SAT 98
[2017-11-04] MEDS ORDERED: LEVA500T33 PO (07:45)
[2017-11-04 08:00] VITALS: BP 151/85; PULSE 82; RESP 17; TEMP 98.3; O2SAT 97
[2017-11-04] MEDS: PANTOPRAZOLE SODIUM 40 MG VIAL IV PUSH SCH (08:41)
[2017-11-04] MEDS: LEVOFLOXACIN 500 MG TAB PO SCH (08:41)
[2017-11-04] MEDS: SODIUM CHLORIDE 0.9% FLUSH 10 ML FLUSH IV FLUSH SCH (08:41)
== END 2017-11-04 10:52 | disposition home or self-care (01) ==
LOC: NEPE 06:55 → NEDH 10:53 → INTOOBSV 10:53 → NEDH 12:21 → N07B 13:55
PROVIDERS: ADMIT Surgery Trauma Surgery; ATTEND Surgery Trauma Surgery
DX: R10.84 Generalized abdominal pain (principal); K91.89 Other postprocedural complications and disorders of digestive system; R53.1 Weakness; R50.9 Fever, unspecified; D72.829 Elevated white blood cell count, unspecified; E78.00 Pure hypercholesterolemia, unspecified; F17.210 Nicotine dependence, cigarettes, uncomplicated; R94.2 Abnormal results of pulmonary function studies; Z90.49 Acquired absence of other specified parts of digestive tract
CPT/HCPCS: 00700; 43274; 71045; 71275; 74177; 74330; 75989; 80053; 82150; 82550; 83690; 84703; 85025; 93005; 96361; 96365; 96366; 96375; 96376; 99285; C1729; C1769; C2625; C9113; G0378; J2060; J2250; J2270; J2405; J2543; J3010; J7030; Q9963; Q9967; 96374; J1610